=== PATIENT | female | born 1985 | race Asian ===

== ENCOUNTER 2018-05-18 16:45 | Emergency (ER) | payer OTHER ==
--- NOTE | 2018-05-18 17:26 | EDPHY ---
H & P Stated Complaint: cp for 3 days . b hand tingling Time Seen by Provider: 05/18/18 16:56 HPI/ROS: CHIEF COMPLAINT: Chest pain for 2 days, difficult anxiety at work for 10 days HISTORY OF PRESENT ILLNESS: This is old female who readily admits to a longstanding history of panic disorder for which she has had treatment for at least 10 years. This past summer she was switched from Zoloft to sertraline. She has taken. Has really helped much. However, she has had no real change in her baseline symptoms that she describes as a panic attack. However, after really rough week last week she is here for new symptoms. As of 2 days ago she started developing a pain in the left lateral chest that is in the anterior axillary line mid chest. She describes as a ache, lasting ever since approximately 60 hr ago, is nonpleuritic and does not migrate nor does it expand. There is no involvement of the arm nor of the scapula. There is no associated symptoms such as nausea vomiting diaphoresis or shortness of breath or pleuritic pain. She has never had this before. She cannot recall anything overuse that she might have done although she is active in the gym. In particular in the last month there has been no undue over-exertion or decreased exercise tolerance. P: Not worse with movement, laying on the side, or taking a breath Q: Ache R: Located to the left lateral chest wall in the anterior axial line does not radiate S: Mild T: Onset approximately 60 hr ago, persistent, no worse no better Cardiac Risk Factors: DM: No HTN: No High Chol: No Smoking: No Family History: No Obesity: No PE/DVT risk factors Prior DVT/PE: No Immobilization/Bed Rest No Splint/Cast: No Surgery, recently: No Family history of hypercoaguable syndrome: No] Unilateral leg swelling: No Obesity: No Perc Score Age > 50 0 HR > 100 0 O2 Sat RA < 95% 0 Hx of DVT/PE 0 Trauma or Surgery, recent 0 Hemoptysis 0 Estrogen Rx 0 Unilateral leg swelling 0 REVIEW OF SYSTEMS: Constitutional: No fever, no chills. Eyes: No discharge No diplopia ENT: No sore throat. Cardiovascular: No chest pain, no palpitations. Respiratory: No cough, shortness of breath, or wheezing. Gastrointestinal: No Nausea, vomiting, abdominla pain or diarrhea Genitourinary: No hematuria or frequency. Musculoskeletal: No back pain. Skin: No rashes. Neurological: No headache. A 10 system review of systems was performed and is negative except for the noted findings in the HPI. Source: Patient - Personal History LMP (Females 10-55): 8-14 Days Ago Current Tetanus Diphtheria and Acellular Pertussis (TDAP): Yes Tetanus Vaccine Date: 2010 - Medical/Surgical History Hx Asthma: No Hx Chronic Respiratory Disease: No Hx Diabetes: No Hx Cardiac Disease: No Hx Renal Disease: No Hx Cirrhosis: No Hx Alcoholism: No Hx HIV/AIDS: No Hx Splenectomy or Spleen Trauma: No Other PMH: med hx-migraines, anxiety. surg-none - Family History Significant Family History: No pertinent family hx - Social History Smoking Status: Never smoked Alcohol Use: None Drug Use: None - Physical Exam Exam: General Appearance: Alert, no distress. Afebrile. Normal phonation. No respiratory distress. Eyes: Pupils equal and round no pallor or injection. No icterus ENT, Mouth: Mucous membranes moist Pharynx without erythema or exudate. TM Clear. Neck: No adenopathy. Supple. No JVD. Trachea in midline. Respiratory: There are no retractions, lungs are clear to auscultation. Chest wall: Nontender to palpation. No crepitus. Cardiovascular: Regular rate and rhythm. Nonpleuritic or cardiac rib Abdomen: Nondistended Neurological: Ox3. No motor weakness. Sensation intact. Gait nl. Skin: Warm and dry, no rashes. Musculoskeletal: No joint swelling. Extremities: No edema. Homans sign negative. No cords. Psychiatric: Normal affect. Patient is oriented X 3. There is no agitation Constitutional: Initial Vital Signs Temperature (C) 36.9 C 05/18/18 16:51 Heart Rate 74 05/18/18 16:51 Respiratory Rate 16 05/18/18 16:51 Blood Pressure 123/97 H 05/18/18 16:51 O2 Sat (%) 99 05/18/18 16:51 O2 Delivery Mode Room Air Allergies/Adverse Reactions: Sulfa (Sulfonamide Antibiotics) Allergy (Intermediate, Verified 05/18/18 16:56) Other-Enter Comments Home Medications: Medication Instructions Recorded Lexapro 07/29/13 Nortriptyline HCl 07/29/13 Topamax 07/29/13 Hydrocodone/Acetaminophen [[place] 1 tab PO Q4H PRN #12 tab 11/10/15 5/325 (*)] LORazepam [Ativan] 0.25 - 0.5 mg PO Q8H PRN #10 tablet 05/18/18 Propranolol HCl 20 mg PO Q6H PRN #60 tablet 05/18/18 Medical Decision Making - Diagnostics EKG Interpretation: EKG: Interpreted by me contemporaneously. Rhythm: Normal sinus rhythm. Heart rate 72 QTc 433 QRS: normal STT segment: normal T Waves: Normal Q waves none Summary: Normal Ekg, normal sinus rhythm Imaging Results: Imaging Impressions Chest X-Ray 05/18/18 17:26 Impression: Airways disease. No pneumonia. Chest film reviewed by me on PACs. Chest x-ray interpretation by radiologist reviewed. ED Course/Re-evaluation: Given the story and lack of risk factors and a normal EKG this was a low risk chest pain thus a troponin was performed and her heart score is 1. We had a lengthy discussion regarding the reassuring nature though not full proof of the Heart Score and thus she is anxious to go home and trial Ativan therapy for underlying anxiety, propranolol therapy for situational anxiety work, and off work for the next 2 days to reset things as she has been so worked up her stressful work. This of course was after the negative chest x-ray, negative EKG and negative troponin As to the situation component of this, while she does have unclear underlying panic attack problem, she gets particularly worked up and has a challenging time of interacting with her work environment and her coworkers as well as feeling worked up. We discussed going on low-dose propranolol on a p.r.n. Basis at work and she is anxious to try this. Thus she will go ahead and have trial of propranolol 20 1 tablet daily p.r.n. While at work. This would be solely to supplement the work related stress and not in lieu of the sertraline Differential Diagnosis: Differential diagnosis includes but is not limited to the following: ACS, myocardial infarction, pneumothorax, pleurisy, pulmonary embolus, CHF, Pneumonia, bronchospasm, Asthma, anxiety, muscle strain. - Data Points Laboratory Results: 05/18/18 17:35 POC Troponin I 0.00 ng/mL ng/mL (0.00-0.08) Point of Care Test Results: Chemistry 05/18/18 17:35 POC Troponin I 0.00 ng/mL ng/mL (0.00-0.08) Departure - Departure Disposition: Home, Routine, Self-Care Clinical Impression: Atypical chest pain, Anxiety Condition: Good Instructions: Chest Pain (ED), Anxiety (ED) Additional Instructions: Rest the area - NO SHOVELING No going to the gym for the next week Consider low dose Ativan as an anti anxiety agent Consider Propranolol when at work on stressful days. Referrals: NICHOLAS DUGAN [Primary Care Provider] - As per Instructions Stand Alone Forms: Work Excuse Prescriptions: LORazepam [Ativan] 0.25 - 0.5 mg PO Q8H PRN #10 tablet PRN Reason: Chest Pain or Anxiety Propranolol HCl 20 mg PO Q6H PRN #60 tablet PRN Reason: Anxiety
--- NOTE | 2018-05-18 17:28 | CPEKG ---
Test Reason : OPEN Blood Pressure : / mmHG Vent. Rate : 072 BPM Atrial Rate : 071 BPM P-R Int : 143 ms QRS Dur : 076 ms QT Int : 395 ms P-R-T Axes : 022 007 037 degrees QTc Int : 433 ms Sinus rhythm Confirmed by Angel Vega ([id number]) on 05/18/2018 5:27:36 PM Referred By: Angel eVga Confirmed By:Angel Vega
[2018-05-18 18:43] VITALS: BP 120/87
== END 2018-05-18 18:30 | disposition home or self-care (01) ==
LOC: CED 16:45
DX: R07.89 Other chest pain (principal); F41.9 Anxiety disorder, unspecified; Z88.2 Allergy status to sulfonamides
CPT/HCPCS: 71046-PO; 84484-ER; 99284-ER